=== PATIENT | male | born 1990 | race Caucasian/White ===

== ENCOUNTER 2021-05-10 15:54 | Emergency (ER) | payer OTHER ==
[~2021-05-10] VITALS: Ht 177.8 cm; Wt 81.7 kg
[2021-05-10] MEDS ORDERED: SUBOXONE 4 MG-1 EACH PO (16:09)
[2021-05-10 17:55] VITALS: BP 120/80
--- NOTE | 2021-05-11 08:33 | EKG ---
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 05/11/21 0833 1602 1602 Nato Mayes MD, FACC /EPI
== END 2021-05-10 17:56 | disposition left against medical advice (07) ==
LOC: M.ERS 15:54
DX: R07.89 Other chest pain (principal); R42 Dizziness and giddiness; Z53.21 Procedure and treatment not carried out due to patient leaving prior to being seen by health care provider